=== PATIENT | female | born 1975 | race Caucasian/White ===

== ENCOUNTER 2018-09-18 14:31 | Outpatient (CLI) | payer BC | END 2018-09-18 23:59 | disposition home or self-care (01) | LOC: VAS 14:31 | PROVIDERS: ATTEND Orthopaedic Surgery | DX: M79.89 Other specified soft tissue disorders (principal); R25.2 Cramp and spasm; Z98.890 Other specified postprocedural states | CPT/HCPCS: 93971 ==